=== PATIENT | male | born 1965 | race Caucasian/White ===

== ENCOUNTER → 2017-11-07 | Outpatient (CLI) | payer BC ==
[~2017-11-07] MED LIST: IRBE-37 PO; METH4PAK4 PO; METO25TA56 PO; PRLSR20 PO
[2017-11-07 17:01] LABS: BASO % 0.3 %; BASO ABS # 0.02 K/uL (0-0.2); EOS % 2.1 %; EOS ABS # 0.13 K/uL (0-0.5); HEMATOCRIT 39.8 % (42-52); HEMOGLOBIN 14.4 g/dL (14.0-18.0); IG# 0.01 K/uL (0.00-0.02); LYMPH % 25.6 %; LYMPH ABS # 1.62 K/uL (1.2-3.4); MEAN CELL VOLUME 83.6 fL (80-100); MEAN CORPUSCULAR HEMOGLOBIN 30.3 pg (25-34); MEAN CORPUSCULAR HGB CONC 36.2 g/dl (32-36); MEAN PLATELET VOLUME 8.9 fL (7.4-10.4); MONO % 8.4 %; MONO ABS # 0.53 K/uL (0.11-0.59); NEUT % 63.4 %; NEUT ABS # 4.03 K/uL (1.4-6.5); PLATELET COUNT 218 K/uL (130-400); RED CELL DISTRIBUTION WIDTH CV 13.5 % (11.5-14.5); RED CELL DISTRIBUTION WIDTH SD 41.1 fL (36.4-46.3); WHITE BLOOD COUNT 6.34 K/uL (4.8-10.8)
[2017-11-07 17:21] LABS: ALBUMIN 4.1 gm/dl (3.4-5.0); ALT/SGPT 44 U/L (12-78); AST/SGOT 18 U/L (15-37); BLOOD UREA NITROGEN 14 mg/dl (7-18); CALCIUM 8.9 mg/dl (8.5-10.1); CARBON DIOXIDE 25 mmol/L (21-32); CREATININE 1.14 mg/dl (0.60-1.40); GLUCOSE 161 mg/dl (70-99); POTASSIUM 3.9 mmol/L (3.5-5.1); SODIUM 139 mmol/L (136-145)
[2017-11-07 17:32] LABS: ALKALINE PHOSPHATASE 64 U/L (45-117); CHOLESTEROL 200 mg/dl (0-200); LDL CHOLESTEROL CALCULATED 105 mg/dl; TOTAL PROTEIN 7.7 gm/dl (6.4-8.2)
[2017-11-09 07:16] LABS: HEMOGLOBIN A1C 5.9 % (4.5-5.6)
== END | disposition home or self-care (01) ==
LOC: C.LABBC 15:30
PROVIDERS: ATTEND Physician Assistant Medical
DX: Z00.00 Encounter for general adult medical examination without abnormal findings (principal); R73.9 Hyperglycemia, unspecified; K21.9 Gastro-esophageal reflux disease without esophagitis; I10 Essential (primary) hypertension; R53.83 Other fatigue; R00.2 Palpitations

== ENCOUNTER → 2017-11-24 | Outpatient (CLI) | payer BC ==
--- NOTE | 2017-11-24 09:45 | DIAGNOSTIC IMAGING REPORT ---
MRI CERVICAL WITHOUT CONTRAST CLINICAL HISTORY: I10 Hypertension M54.12 neck pain with bilateral cervical radiculopathy. TECHNIQUE: Sagittal and axial T1, T2 and STIR images were obtained. COMPARISON STUDY: No previous studies for comparison. There are no suspicious areas of marrow replacement. No intrinsic cervical cord lesions are visualized. C2-3: There is no evidence of disc bulge or focal herniation. There is no spinal or foraminal stenosis. C3-4: There is a tiny central disc protrusion. There is minimal effacement of the anterior thecal sac. There is no significant spinal stenosis. There is no significant foraminal stenosis C4-5: There are no disc bulges or focal herniations. There is no spinal or foraminal stenosis. C5-6 :There is a mild circumferential disc bulge. There is no significant spinal stenosis. There is no significant foraminal stenosis. C6-7: There is no evidence of disc bulge or focal herniation. There is no evidence of spinal or foraminal stenosis. C7-T1: There is no evidence of disc bulge or focal herniation. There is no evidence of spinal or foraminal stenosis. IMPRESSION: 1. Minor multilevel degenerative changes 2. Tiny central disc protrusion at the C3-4 level. Minor disc bulge at the C5-6 level 3. No evidence of significant spinal stenosis Electronically signed by: Ramiro Finch M.D. 11/24/2017 9:44 AM Dictated Date/Time: 11/24/2017 9:38 AM
--- NOTE | 2017-11-24 14:15 | EXERCISE STRESS ECHO ---
*NOTICE TO RECEIVING CONSTITUTION PARTY AGENCY This information is strictly Confidential and protected under [place] law. [place] law prohibits you from making any further disclosure of this information unless further disclosure is expressly permitted by the written consent of the person to whom it pertains or is authorized by law. A general authorization for the release of medical or other information is not sufficient for this purpose. Hospital accepts no responsibility if the information is made available to any other person, INCLUDING THE PATIENT. Interpretation Summary * Name: LYNNE FERNANDEZ Study Date: 11/24/2017 09:48 AM BP: 140/80 mmHg * Patient Location: Cardiopulmonary Lab HR: 59 * : 1965 (M/d/yyyy) Gender: Male Height: 70 in * Age: 52 yrs Ethnicity: [place] Weight: 207 lb * Ordering Physician: Tayla Baron * Referring Physician: Tayla Baron * Performed By: Alli Msihra RCS * * Reason For Study: A-Typical Chest Pain * BSA: 2.1 m2 * -- Conclusions -- * Left ventricular systolic function is normal. * The left atrium is borderline dilated. * Normal exercise echocardiogram without evidence of inducible ischemia Procedure Details * ECHOEX, CPT #[id number] * ECHO COLOR FLOW, CPT #[id number] * ECHO DOPPLER, CPT #[id number] Left Ventricular Findings with Stress * Normal exercise echocardiogram without evidence of inducible ischemia Left Ventricle * The left ventricle is normal in size. * There is normal left ventricular wall thickness. * Ejection Fraction = 60-65%. * Left ventricular systolic function is normal. * The left ventricular wall motion is normal at rest. Right Ventricle * The right ventricle is normal in size and function. * The right ventricular systolic function is normal as assessed by tricuspid annular plane systolic excursion (TAPSE) (normal >1.5 cm). Atria * The left atrium is borderline dilated. * Right atrial size is normal. Mitral Valve * The mitral valve leaflets appear normal. There is no evidence of stenosis, fluttering, or prolapse. * Significant mitral regurgitation is absent. Tricuspid Valve * The tricuspid valve is not well visualized, but is grossly normal. * Significant tricuspid regurgitation is absent. Aortic Valve * The aortic valve is normal in structure and function. * The aortic valve is trileaflet. * There is no significant aortic regurgitation. Great Vessels * The aortic root is normal size. Pericardium * There is no pericardial effusion. Stress Parameters * Normal baseline electrocardiogram. * Stress ECG: No ST changes. No arrhythmias. * Rest heart rate was '59' BPM. * Rest blood pressure was '140/80' * Maximum heart rate achieved was 142 bpm. * Maximum heart rate was 85 % of maximum age-predicted heart rate. * Maximum blood pressure was '180/80' * Total exercise time was '9:58' * Maximum exercise MET level achieved was '11.6' METS * Maximum treadmill speed was '4.2' miles per hour. * Maximum treadmill elevation was '16'% grade. * Exercise was terminated due to 'fatigue' * Normal blood pressure response to exercise. Left Ventricular Findings with Stress * Baseline EKG was normal There are no significant ST or T-wave changes during exercise recovery Baseline echocardiogram was normal There was normal augmentation of all segments without development of wall motion abnormalities at peak exertion There is normal heart rate and blood pressure response to exercise Schwab treadmill score: 10 (low risk) MMode 2D Measurements and Calculations IVSd 1.0 cm IVSs 1.5 cm LVIDd 5.2 cm LVIDs 2.8 cm LVPWd 1.0 cm LVPWs 1.7 cm IVS/LVPW 1.0 FS 46.6 % EDV(Teich) 127.0 ml ESV(Teich) 28.4 ml EF(Teich) 77.6 % EDV(cubed) 137.1 ml ESV(cubed) 20.9 ml EF(cubed) 84.7 % % IVS thick 47.7 % % LVPW thick 66.3 % LV mass(C)d 194.6 grams LV mass(C)dI 91.9 grams/m\S\2 LV mass(C)s 157.0 grams LV mass(C)sI 74.1 grams/m\S\2 SV(Teich) 98.6 ml SI(Teich) 46.6 ml/m\S\2 SV(cubed) 116.2 ml SI(cubed) 54.9 ml/m\S\2 Ao root diam 3.8 cm Ao root area 11.3 cm\S\2 ACS 1.7 cm LA dimension 4.3 cm asc Aorta Diam 3.4 cm LA/Ao 1.1 EDV(MOD-sp4) 99.0 ml ESV(MOD-sp4) 33.0 ml EF(MOD-sp4) 66.7 % EDV(MOD-sp2) 118.0 ml ESV(MOD-sp2) 52.0 ml EF(MOD-sp2) 55.9 % SV(MOD-sp4) 66.0 ml SI(MOD-sp4) 31.2 ml/m\S\2 SV(MOD-sp2) 66.0 ml SI(MOD-sp2) 31.2 ml/m\S\2 Doppler Measurements and Calculations MV E max jules 62.8 cm/sec MV A max jules 55.6 cm/sec MV E/A 1.1 MV P1/2t max jules 75.9 cm/sec MV P1/2t 59.7 msec MVA(P1/2t) 3.7 cm\S\2 MV dec slope 372.7 cm/sec\S\2 MV dec time 0.25 sec Ao V2 max 92.7 cm/sec Ao max PG 3.4 mmHg Ao max PG (full) 0.14 mmHg LV V1 max PG 3.3 mmHg LV V1 max 90.8 cm/sec PA V2 max 104.1 cm/sec PA max PG 4.3 mmHg TR max jules 222.6 cm/sec
== END | disposition home or self-care (01) ==
LOC: C.MRI 08:40
PROVIDERS: ATTEND Physician Assistant Medical
DX: I10 Essential (primary) hypertension (principal); M54.12 Radiculopathy, cervical region

== ENCOUNTER → 2017-12-06 | Outpatient (CLI) | payer BC ==
--- NOTE | 2017-12-08 10:33 | POLYSOMNOGRAPH REPORT ---
CLINICAL DATA: A 52-year-old male with BMI of 29.7, referred by Tayla Baron with symptoms of fatigue and low energy. He has palpitations at night. His has noted snoring and apnea. On the evening of 12/06/2017, a home sleep apnea test was performed using a Blend type 3 monitor. RECORDING RESULTS: Total recording time was 10 hours. The patient's estimated sleep time and patient monitoring time was 7.4 hours. RESPIRATORY DATA: There was no evidence of clinically significant sleep apnea seen. The COOPER was 1.9. There were 2 obstructive apneic episodes and 1 central apneic episode. There were 11 hypopneic episodes. The longest respiratory event was 28 seconds. OXIMETRY DATA: Transient oxygen desaturation was seen. Oxygen liza was 84%. Mean saturation was 92%. Time below 89% was 11 minutes. HEART RATE DATA: Heart rates ranged from 51-64 beats per minute. SNORING DATA: Snoring was recorded throughout the night. [facility] S[employer] CONSULTANT'S COMMENTS: The patient had some hypopneas and few apneas. All but 2 of the events occurred while the patient was on his back supine. IMPRESSION: No evidence of clinically significant sleep apnea/hypopnea, sustained hypoxemia. All of the hypopneas and apneas that were recorded occurred while the patient was supine. RECOMMENDATIONS: The patient may benefit from a practicing good sleep hygiene. He should try to sleep primarily on his sides. There is nothing here to suggest the need for CPAP. MTDD
== END | disposition home or self-care (01) ==
LOC: C.NEUR 08:38
PROVIDERS: ATTEND Physician Assistant Medical
DX: R06.81 Apnea, not elsewhere classified (principal); R53.83 Other fatigue; R00.2 Palpitations